=== PATIENT | female | born 1995 | race Caucasian/White ===

== ENCOUNTER 2018-12-18 10:42 | Outpatient (REF) | payer OTHER, SELFPAY ==
[2018-12-18 13:22] LABS: Anion Gap 10.5 mmol/L (3-11); BUN 11 mg/dL (7-18); CO2 26.5 mmol/L (21.0-32.0); CREATININE 0.66 mg/dL (0.55-1.02); Calcium 8.8 mg/dL (8.5-10.1); Chloride 107 mmol/L (98-107); Glucose 89 mg/dL (70-100); Potassium 4.3 mmol/L (3.5-5.1); Sodium 144 mmol/L (136-145)
[2018-12-19 10:58] LABS: Syphilis Serology (RPR) Negative (Negative)
[2018-12-19 11:55] LABS: HIV-1/2 Ag & Ab Screen Negative (NEGAT); Hepatitis C Ab w Rflx HCV PCR Negative (NEGAT)
[2018-12-19 11:59] LABS: Hepatitis B Surface Ag Negative (NEGAT)
[2018-12-19 12:53] LABS: HBs Antibody, Quant 50.3 mIU/mL; Hepatitis B Surface Ab Positive
[2018-12-19 14:20] LABS: Chlamydia Result Negative; GC Result Negative; Specimen Description URINE
== END 2018-12-18 11:02 ==
LOC: NCHCN 10:42
PROVIDERS: PCP Pediatrics; Visit Provider Nurse Practitioner Family
DX: Z00.00 Encounter for general adult medical examination without abnormal findings (principal); Z11.3 Encounter for screening for infections with a predominantly sexual mode of transmission; Z11.59 Encounter for screening for other viral diseases; Z11.4 Encounter for screening for human immunodeficiency virus [HIV]; Z13.228 Encounter for screening for other metabolic disorders
CPT/HCPCS: 80048; 85027; 86706; 86803; 87340; 87389; 87491; 87591; 86592

== ENCOUNTER 2019-01-04 17:10 | Outpatient (REF) | payer OTHER, SELFPAY ==
[2019-01-04 19:43] LABS: HGB 14.2 g/dL (12.0-15.5); Mean Corp. HGB Concentration 34.6 g/dL (32.0-36.0); Mean Corpuscular Hemoglobin 30.4 pg (27.0-33.0); Mean Corpuscular Volume 87.8 fL (80-95); Mean Platelet Volume 10.4 fL (8.0-11.0); Platelet Count 294 x1000/uL (130-400); RBC 4.67 m/cumm (4.00-5.20); RBC Distribution Width 12.1 % (11.7-14.6)
[2019-01-04 20:08] LABS: HCG Qual (Serum) Negative
== END 2019-01-04 17:30 ==
LOC: NCHCN 17:10
PROVIDERS: PCP Pediatrics; Visit Provider Nurse Practitioner Family
DX: N93.9 Abnormal uterine and vaginal bleeding, unspecified (principal)
CPT/HCPCS: 85027; 84703

== ENCOUNTER 2019-02-01 08:46 | Outpatient (REF) | payer OTHER, SELFPAY ==
--- NOTE | 2019-02-01 08:25 | PAPFT_PTH ---
PATIENT: Judit Chang LOC: [facility] U#:[id number] AGE/SX: 23/F ROOM: RE02/01/[address]: Josette Hayes NP : 1995 BED: DIS: 02/01/2019 SPEC #: [id number] RECD: 02/01/19 12:46 STATUS: TYRONE REAndrei #: [id number] JOSE: 02/01/19 08:[address]: Josette Hayes NP DEPT: [facility] Cytology RECD BY: Patt Garcia ENTERED: 02/01/19 12:47 SP TYPE: PAPFT OTHR DR: Arnold Esquivel Tissues: 1 - CX/ENDOCX FOR PAP SMEARS Procedures: PAP THIN PREP/UVM Screening Comments: [id number]
== END 2019-02-01 09:06 ==
LOC: LBN 08:46
PROVIDERS: PCP Nurse Practitioner Family; Visit Provider Nurse Practitioner Women's Health
DX: Z12.4 Encounter for screening for malignant neoplasm of cervix (principal)
CPT/HCPCS: 88142

== ENCOUNTER 2019-12-26 02:42 | Outpatient (CLI) | payer OTHER, SELFPAY ==
[2019-12-26 10:57] LABS: Abs Immature Grans 0.02 k/cumm (0.0-0.09); Absolute Basophil Count 0.01 k/cumm (0.0-0.2); Absolute Eosinophil Count 0.02 k/cumm (0.0-0.7); Absolute Lymphocyte Count 1.49 k/cumm (1.2-3.4); Absolute Monocyte Count 0.72 k/cumm (0.11-0.7); Absolute Neutrophil Count 5.99 k/cumm (1.2-6.7); Basophils % 0.1; Eosinophils % 0.2; HCT 37.3 % (36.0-46.0); Immature Grans % 0.2 %; Lymphocytes % 18.1; Mean Corp. HGB Concentration 34.9 g/dL (32.0-36.0); Mean Corpuscular Hemoglobin 30.1 pg (27.0-33.0); Mean Corpuscular Volume 86.3 fL (80-95); Monocytes % 8.7; Neutrophils % 72.7; Platelet Count 291 x1000/uL (130-400); RBC 4.32 m/cumm (4.00-5.20); RBC Distribution Width 12.6 % (11.7-14.6); White Blood Cell Count 8.25 k/cumm (4.4-10.8)
[2019-12-27 09:58] LABS: Hepatitis B Surface Ag Negative (Negative)
[2019-12-27 10:42] LABS: Hepatitis C Ab w Rflx HCV PCR Negative (Negative)
[2019-12-27 10:45] LABS: Varicella IgG Antibody Positive (See Note)
[2019-12-27 10:49] LABS: Rubella IgG Ab (UVM) Positive (See Note)
[2019-12-27 10:59] LABS: HIV-1/2 Ag & Ab Screen Negative (Negative)
[2019-12-27 15:27] LABS: Syphilis Total Ab w/Reflex Nonreactive (Nonreactive)
== END 2019-12-26 03:02 ==
PROVIDERS: PCP Nurse Practitioner Family; Visit Provider Advanced Practice Midwife
DX: Z34.91 Encounter for supervision of normal pregnancy, unspecified, first trimester (principal); Z11.59 Encounter for screening for other viral diseases; Z11.4 Encounter for screening for human immunodeficiency virus [HIV]; Z01.84 Encounter for antibody response examination
CPT/HCPCS: 36415; 86787; 86803; 86850; 86900; 86901; 87340; 87389; 85025; 86762; 86780

== ENCOUNTER 2019-12-26 12:08 | Outpatient (REF) | payer OTHER, SELFPAY ==
[2019-12-26 14:12] LABS: *AMPHETAMINES SCREEN URINE Negative (Negative); *BARBITURATES SCREEN URINE Negative (Negative); *BENZODIAZEPINES SCREEN URINE Negative (Negative); Cannabinoids THC Negative (Negative); Cocaine Screen,Urine Negative (Negative); METHADONE URINE SCREEN Negative (Negative); OPIATES URINE SCREEN Negative (Negative)
[2019-12-26 14:16] LABS: Tricyclic Antidepressants Negative (Negative)
[2019-12-27 13:50] LABS: Chlamydia Result Negative (Negative); GC Result Negative (Negative)
[2020-01-01 12:02] LABS: Buprenorphine Negative; Norbuprenorphine Negative
== END 2019-12-26 12:28 ==
LOC: LBN 12:08
PROVIDERS: PCP Nurse Practitioner Family; Visit Provider Advanced Practice Midwife
DX: Z34.91 Encounter for supervision of normal pregnancy, unspecified, first trimester (principal); Z11.3 Encounter for screening for infections with a predominantly sexual mode of transmission
CPT/HCPCS: 80307; 87491; 87591; 87086

== ENCOUNTER 2020-01-07 02:22 | Outpatient (CLI) | payer OTHER, SELFPAY ==
[2020-01-07 08:43] LABS: Kit/Specimen SENT
== END 2020-01-07 02:42 ==
PROVIDERS: PCP Nurse Practitioner Family; Visit Provider Advanced Practice Midwife
DX: Z34.01 Encounter for supervision of normal first pregnancy, first trimester (principal)

== ENCOUNTER 2020-02-20 04:33 | Outpatient (CLI) | payer OTHER, SELFPAY ==
--- NOTE | 2020-02-20 08:00 | DI.US_ITS ---
EXAM: US OB 2-3 TRIMESTER CLINICAL HISTORY: , survey, Z34.90. TECHNIQUE: Transabdominal obstetrical ultrasound performed. COMPARISON: No exams were available for comparison FINDINGS: Transabdominal obstetrical ultrasound performed. FINDINGS: Number of fetuses: One. position: Various positions during the examination. heart rate: 158 bpm. Placental location: Anterior. No evidence of previa. BIOMETRIC DATA: Composite Age: 19 weeks 2 days EDC by US: 07/14/2020 Amniotic fluid index: Amount of fluid is within normal limits. ANATOMICAL SURVEY: Unremarkable. IMPRESSION: 1. Single live intrauterine gestation as above. 2. Unremarkable anatomic survey. DATA REPOSITORY:
== END 2020-02-20 04:53 ==
PROVIDERS: PCP Nurse Practitioner Family; Visit Provider Advanced Practice Midwife
DX: Z34.92 Encounter for supervision of normal pregnancy, unspecified, second trimester (principal)
CPT/HCPCS: 76805

== ENCOUNTER 2020-04-16 04:08 | Outpatient (CLI) | payer OTHER, SELFPAY ==
[2020-04-16 10:16] LABS: HCT 33.6 % (36.0-46.0); HGB 11.4 g/dL (11.2-15.7); MCHC 33.9 % (32.0-36.0); MCV 91.3 fL (80-95); MPV 8.7 fL (8.0-11.0); Platelet Count 255 10^3/uL (130-400); RBC 3.68 10^6/uL (3.93-5.22); RDW 12.4 % (11.7-14.6); RDW-SD 41.1 fL; WBC 10.33 10^3/uL (4.4-10.8)
[2020-04-16 10:22] LABS: Glucose,1 Hr (Glucola) 89 mg/dL (80-140)
== END 2020-04-16 04:28 ==
PROVIDERS: PCP Nurse Practitioner Family; Visit Provider Advanced Practice Midwife
DX: Z34.92 Encounter for supervision of normal pregnancy, unspecified, second trimester (principal); Z3A.27 27 weeks gestation of pregnancy
CPT/HCPCS: 36415; 82950; 85027

== ENCOUNTER 2020-04-18 09:32 | Outpatient (CLI) | payer OTHER, SELFPAY ==
[2020-04-18 10:02] VITALS: BP 115/72; PULSE 97; TEMP 37.1
[2020-04-18 10:06] VITALS: BP 115/72; PULSE 97
[2020-04-18 11:12] VITALS: BP 115/72; PULSE 97; TEMP 37.1
--- NOTE | 2020-04-18 15:09 | PDOC.NST_ITS ---
Date of service: 04/18/20 Time of Service: 10:00 NST Evaluation Reason for NST Reasons for Nonstress Test: OTHER, SEE COMMENT Reason for NST Other: Patient fell at home Gestational Age Gestational Age in Weeks and Days: 27 Weeks and 3Days Test and Monitor Explained Test/Monitor Explained: Test Explained, Monitor Explained and Patient Verbalized Understanding Vital Signs Blood Pressure: 115/72 Pulse: 97 Temperature: 98.8 F Urine Results Urine Protein: Negative Urine Ketones: Negative Urine Glucose: Negative Urine Blood: Negative NST Information Date on Monitor: 04/18/20 Time on Monitor: 10:03 Date off Monitor: 04/18/20 Time off Monitor: 11:55 Total Time on Monitor: 112 NST Interventions: PO Hydration NST Evaluation Patient States Movement: Present FHR Baseline: 150 Variability: Moderate 6-25 bpm Accelerations: 10x10 Decelerations: None NST Results: Reactive NST Evaluation Baby B Patient States Movement: Present FHR Baseline: 145 Variability: Moderate 6-25 bpm Accelerations: 15x15 Decelerations: None NST Results: Reactive Note NST Note Note: Pt presents for nst s/p falling down three steps on her buttocks. No tr auma to abd. As per consult w/ w/o need for residential monitoring only nst needed. Pt denies any lof. Reports good fm. Enc. to keep scheduled appt. Report decreased fm. NST Reviewed and Verified by: Hernan Summers
[2020-04-18 15:12] VITALS: BP 115/72; PULSE 97; TEMP 37.1
== END 2020-04-18 12:10 | disposition home or self-care (01) ==
LOC: BCD 09:33 → OBS 09:55
PROVIDERS: PCP Nurse Practitioner Family; Visit Provider Advanced Practice Midwife
DX: Z04.3 Encounter for examination and observation following other accident (principal); O9A.212 Injury, poisoning and certain other consequences of external causes complicating pregnancy, second trimester; Z3A.27 27 weeks gestation of pregnancy; W10.9XXA Fall (on) (from) unspecified stairs and steps, initial encounter
CPT/HCPCS: 59025

== ENCOUNTER 2020-06-19 15:53 | Outpatient (REF) | payer MEDICAID, SELFPAY ==
[2020-06-19 15:44] LABS: *AMPHETAMINES SCREEN URINE Negative (Negative); *BARBITURATES SCREEN URINE Negative (Negative); *BENZODIAZEPINES SCREEN URINE Negative (Negative); Cannabinoids THC Negative (Negative); Cocaine Screen,Urine Negative (Negative); METHADONE URINE SCREEN Negative (Negative); OPIATES URINE SCREEN Negative (Negative)
[2020-06-19 15:45] LABS: Tricyclic Antidepressants Negative (Negative)
[2020-06-29 12:25] LABS: Buprenorphine Negative
== END 2020-06-19 16:13 ==
LOC: LBN 15:53
PROVIDERS: PCP Nurse Practitioner Family; Visit Provider Advanced Practice Midwife
DX: Z34.93 Encounter for supervision of normal pregnancy, unspecified, third trimester (principal); Z36.85 Encounter for antenatal screening for Streptococcus B; Z3A.36 36 weeks gestation of pregnancy
CPT/HCPCS: 80307; 87081

== ENCOUNTER 2020-06-25 18:28 | Outpatient (CLI) | payer MEDICAID, SELFPAY ==
[2020-06-25 19:08] VITALS: BP 136/76; PULSE 114; TEMP 36.6
--- NOTE | 2020-06-25 20:01 | W.OBNST ---
Date of service: 06/25/20 Time of Service: 20:01 NST Evaluation Reason for NST Reasons for Nonstress Test: OTHER, SEE COMMENT Reason for NST Other: ?PPROM Gestational Age Gestational Age in Weeks and Days: 37 Weeks and 1Days Test and Monitor Explained Test/Monitor Explained: Test Explained, Monitor Explained and Patient Verbalized Understanding Vital Signs Blood Pressure: 136/76 Pulse: 114 Temperature: 97.9 F NST Information Date on Monitor: 06/25/20 Time on Monitor: 19:09 Date off Monitor: 06/25/20 Time off Monitor: 19:34 Total Time on Monitor: 25 NST Interventions: None Contraction Frequency: None NST Evaluation Patient States Movement: Present FHR Baseline: 140 Variability: Moderate 6-25 bpm Accelerations: 15x15 Decelerations: None NST Results: Reactive Note NST Note Note: SSE performed, neg ferns, neg nitrizine, neg pooling NST Reviewed and Verified by: Radha Camacho
[2020-06-25 20:02] VITALS: BP 136/76; PULSE 114; TEMP 36.6
== END 2020-06-25 19:45 ==
LOC: BCD 18:31 → OBS 18:36
PROVIDERS: PCP Nurse Practitioner Family; Visit Provider Advanced Practice Midwife
DX: O47.1 False labor at or after 37 completed weeks of gestation (principal); Z3A.37 37 weeks gestation of pregnancy
CPT/HCPCS: 59025

== ENCOUNTER 2020-06-28 08:01 | Outpatient (REF) | payer MEDICAID, SELFPAY ==
[2020-06-28 08:06] VITALS: BP 127/84; PULSE 110; TEMP 36.8
[2020-06-28 08:08] VITALS: BP 127/84; PULSE 110
--- NOTE | 2020-06-28 14:15 | W.OBNST ---
Date of service: 06/28/20 Time of Service: 11:00 NST Evaluation Reason for NST Reasons for Nonstress Test: DECREASED MOVEMENT Gestational Age Gestational Age in Weeks and Days: 37 Weeks and 4Days Test and Monitor Explained Test/Monitor Explained: Test Explained, Monitor Explained and Patient Verbalized Understanding Vital Signs Blood Pressure: 127/84 Pulse: 110 Temperature: 98.2 F NST Information Date on Monitor: 06/28/20 Time on Monitor: 08:00 Date off Monitor: 06/28/20 Time off Monitor: 08:57 Total Time on Monitor: 57 NST Interventions: PO Hydration NST Evaluation Patient States Movement: Present FHR Baseline: 140 Variability: Moderate 6-25 bpm Accelerations: 15x15 Decelerations: None NST Results: Reactive Note NST Note Note: Judit awoke this morning and was not feeling the baby moving. She came in for NST which was recative. She reports contractions last nigh which have stopped this morning. NST Reviewed and Verified by: Keely Patel
[2020-06-28 14:17] VITALS: BP 127/84; PULSE 110; TEMP 36.8
== END 2020-06-28 09:05 | disposition home or self-care (01) ==
LOC: BCD 08:01
PROVIDERS: PCP Nurse Practitioner Family; Visit Provider Advanced Practice Midwife
DX: O36.8130 Decreased fetal movements, third trimester, not applicable or unspecified (principal); Z3A.37 37 weeks gestation of pregnancy
CPT/HCPCS: 59025

== ENCOUNTER 2020-07-02 16:45 | Outpatient (CLI) | payer MEDICAID, SELFPAY ==
[2020-07-02 17:27] VITALS: BP 125/72; PULSE 100; TEMP 36.9
[2020-07-02 17:31] VITALS: BP 125/72; PULSE 100
[2020-07-02 18:44] LABS: ROM Plus Negative
--- NOTE | 2020-07-02 20:11 | PDOC.NST_ITS ---
Date of service: 07/02/20 Time of Service: 20:12 NST Evaluation Reason for NST Reasons for Nonstress Test: OTHER, SEE COMMENT Reason for NST Other: Rule out labor Gestational Age Gestational Age in Weeks and Days: 38 Weeks and 1Days Test and Monitor Explained Test/Monitor Explained: Test Explained, Monitor Explained and Patient Verbalized Understanding Vital Signs Blood Pressure: 125/72 Pulse: 100 Temperature: 98.4 F Urine Results Urine Protein: Negative Urine Ketones: Negative Urine Glucose: Negative Urine Blood: Negative NST Information Date on Monitor: 07/02/20 Time on Monitor: 17:31 Date off Monitor: 07/02/20 Time off Monitor: 18:50 Total Time on Monitor: 79 NST Interventions: PO Hydration NST Evaluation Patient States Movement: Present FHR Baseline: 130 Variability: Moderate 6-25 bpm Accelerations: 15x15 Decelerations: None NST Results: Reactive Note NST Note Note: Judit reports 'trickling of fluid at home. Sterile speculum exam performed. Neg pooling, neg fern, neg nitrazine. neg rom-plus. SVE - cervix Ft dilated 20% effaced and -1 station. Signs of labor reviewed. Follow up at [facility] NST Reviewed and Verified by: Keely Patel
[2020-07-02 20:13] VITALS: BP 125/72; PULSE 100; TEMP 36.9
== END 2020-07-02 18:55 | disposition home or self-care (01) ==
LOC: BCD 16:47 → OBS 17:22
PROVIDERS: PCP Nurse Practitioner Family; Visit Provider Advanced Practice Midwife
DX: O47.1 False labor at or after 37 completed weeks of gestation (principal); Z3A.38 38 weeks gestation of pregnancy
CPT/HCPCS: 59025; 84112; 87480; 87510; 87660

== ENCOUNTER 2020-07-17 21:02 | Inpatient (IN) | payer MEDICAID, SELFPAY ==
[2020-07-17 20:53] VITALS: BP 135/86; PULSE 110; RESP 16; TEMP 36.8; O2SAT 99
[2020-07-17 21:14] VITALS: BP 135/86; PULSE 110; RESP 16; TEMP 36.8; O2SAT 99
[2020-07-17 21:56] VITALS: BP 138/89; PULSE 94
[2020-07-17 23:28] VITALS: BP 141/82; PULSE 97; RESP 16
[2020-07-18] VITALS (9 sets, daily range): BP systolic 111–141; BP diastolic 59–78; PULSE 80–105; RESP 16–20; TEMP 36.8–37
--- NOTE | 2020-07-18 00:10 | W.PM.OBHPL1 ---
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 NORMA Calculator Estimated Delivery Date Method Current WG Current Estimate 07/15/20 Ultrasound #1 40w 3d Other Estimates 06/25/20 LMP (Certain) 43w 2d History of Present Expected Delivery Route/Plan - CNM FOB - Emre (Bridger) Allyssa- his first baby. BG GBS negative Interested in using tub for labor, thinking she'd like regional anesthesia when it gets intense Specific Issues/Plan 1. Learning Disability: on-line format is difficult. Responds better to live instruction. 2. GERD of migraines- not recently 3. History of depression 4. Genetic screening options reviewed - Quad screen desired - AFP declined, and patients opts for [place] test 4a. Pt changed her mind and requested [place] to be drawn. Order placed. 4b. 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 Nausea and vomiting- zofran PRN - stopped in 2nd trimester. Assessment: History Reviewed & Current Review of Systems All systems reviewed & are unremarkable except as noted in HPI and below Constitutional Constitutional: Reports system reviewed and no additional complaints, except as documented Cardiovascular Cardiovascular: Reports system reviewed and no additional complaints, except as documented Respiratory Respiratory: Reports system reviewed and no additional complaints, except as documented Gastrointestinal Gastrointestinal: Reports system reviewed and no additional complaints, except as documented Genitourinary Genitourinary: Reports system reviewed and no additional complaints, except as documented Comments: pieces of mucous plug with brown blood all day Musculoskeletal Musculoskeletal: Reports system reviewed and no additional complaints, except as documented and Reports back pain Integumentary/Breasts Skin/Breast: Reports system reviewed and no additional complaints, except as documented Neurologic Neurologic: Reports system reviewed and no additional complaints, except as documented Psychiatric Psychiatric: Reports system reviewed and no additional complaints, except as documented Allergic/Immunologic Allergic/Immunologic: Reports system reviewed and no additional complaints, except as documented PFSH Medical History (Updated 07/18/20 @ 00:22 by Radha Camacho) BMI 29.0-29.9,adult Congenital hearing disorder Depression Hip pain right hip Migraine takes alleve Obstructive sleep apnea (adult) (pediatric) (11/29/13) does not use cpap anymore Sleep apnea Family History (Updated 12/26/19 @ 09:47 by Keely Patel CNM) Mother Mental disorder bipolar- biological Mom - limited information Brother Mental disorder bipolar- biological - limited information Sister Autism Social History (Updated 02/01/19 @ 08:47 by Josette Hayes NP) Smoking/Tobacco Use Status: Never Smoking risk assessment performed?: Yes Alcohol Intake: current Alcohol Intake frequency: 0-2 drinks per day Drug use: Never Sexually active: Yes Do you think of yourself as: straight/heterosexual Current gender identity: female Do you feel safe in your relationship?: Yes Female Reproductive History Menstrual control method: none History History 1 Para 0 Hx # Term Pregnancies 0 Multiple births 0 Hx # Pregnancies 0 Ectopic pregnancies 0 AB induced 0 Hx Number of Living Children 0 AB spontaneous 0 Meds Home Medications and Allergies Home Medications Medication Instructions Recorded Confirmed Type prenat.vits,sri,ilv-nwxl-blfws 1 tab PO DAILY 11/19/19 07/09/20 History omeprazole 40 mg capsule,delayed 40 mg PO DAILY #30 cap 07/15/20 07/15/20 Rx release Allergies Allergy/AdvReac Type Severity Reaction Status Date / Time kiwi Allergy Severe Unverified 07/15/20 14:51 No Known Drug Allergies Allergy Unverified 07/15/20 14:51 orange AdvReac Mild Unverified 07/15/20 14:51 Exam Physical Exam Vital signs: Temp Pulse Resp BP Pulse Ox 98.2 F 97 H 16 141/82 H 99 07/17/20 21:14 07/17/20 23:28 07/17/20 23:28 07/17/20 23:28 07/17/20 21:14 Vital Signs Reviewed: Yes Constitutional Constitutional: mild distress Detailed Labor and Delivery Exam Dilation: 3.5 Effacement (%): 80 station: -2 Position: ROP Cervix position: posterior Consistency: medium Amniotic Membrane Status: Intact Monitor Mode: External Contraction Frequency(min): irregular but frequent Contraction Duration(sec): 40-60 seconds Contraction Intensity: Mild Fetus A Heart Rate Baseline: 135 Monitor Accelerations: 15 X 15 Monitor Decelerations: None Variability: Moderate (6-25 BPM) Presentation: Cephalic Categories: Category I Est. Weight: 7 lb 7.931 oz Est. Weight: 3400 gms HEENT Exam HEENT Exam: Normal Neck Exam Neck Exam: Normal Chest/Brest/Axilla Exam Chest Exam: Normal Breast Exam Breast Exam: Normal Respiratory Exam Respiratory Exam: Normal Cardiovascular Exam Cardiovascular Exam: Normal Abdominal Exam Abdominal Exam: Normal (Gravid, S=D) Rectal Exam Rectal Exam: Not Done Exam Exam: Normal Extremities Exam Extremities Exam: Normal Back/Spine/Pelvis Exam Back Exam: Normal Pelvis Adequate: Yes Skin Exam Skin Exam: Normal Neurological Exam Neurological Exam: Normal Psychiatric Exam Psychiatric Exam: Normal Results Results Group Beta Strep: Negative Blood Type: A+ Rubella Status: Immune Varicella Immunity: Immune Risk Assessment Risk for Shoulder Dystocia Historical/Initial OB: NEGATIVE FOR: Pelvic Abnormality, Pre- BMI>30, Previous Shoulder Dystocia or Previous Macrosomia 40 Weeks: NEGATIVE FOR: EFW> 4500 gms, Maternal Weight Gain >40lb or Post Dates Increased Risk?: No Counselin06/19/20 @ 36 weeks low risk al Delivery Plan @ 36wks: 06/19/20 al Risk for Pre-Eclampsia Daily Dose ASA Indicated: No Yes, if one or more: NEGATIVE FOR: Hx Pre-E/Gest HTN, Chronic HTN, Multiple Gestation, Pre-gestational DM, Renal Disease, Systemic Lupus or APA Syndrome Yes, if 2 or more: POSITIVE FOR: Nulliparity; NEGATIVE FOR: Age>= 35 yrs, >10yr btwn pregnancies, BMI>30, ethinicty, Mother/Sister w/ Pre-E or Previous IUGR Risk for Post- Hemorrhage Initial: NEGATIVE FOR: Multiple Gestation, Previous PPH, Known Clotting Deficiency, Grand Multiparity or Anticoagulation At Risk?: No Counseled re: Active Management: No Risks Reviewed Risks Reviewed Upon Admission: Yes
[2020-07-18] MEDS: MORPHine 10 MG/ML VIAL SC (00:34)
--- NOTE | 2020-07-18 04:03 | PGE_ITS ---
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
[2020-07-18 04:19] LABS: Abs Immature Grans 0.11 10^3/uL (0.0-0.06); Absolute Basophil Count 0.04 10^3/uL (0.0-0.2); Absolute Monocyte Count 0.94 10^3/uL (0.1-0.8); Basophils % 0.2; HCT 33.1 % (36.0-46.0); HGB 10.8 g/dL (11.2-15.7); Immature Grans % 0.6; Lymphocytes % 11.2; MCHC 32.6 % (32.0-36.0); MCV 82.8 fL (80-95); MPV 10.2 fL (8.0-11.0); Monocytes % 5.3; Neutrophils % 82.7; Nucleated RBC 0 %; Platelet Count 254 10^3/uL (130-400); RDW 13.1 % (11.7-14.6); RDW-SD 39.6 fL; WBC 17.71 10^3/uL (4.4-10.8)
[2020-07-18 04:59] LABS: Absolute Lymphocyte Count 1.98 10^3/uL (1.2-3.4); Absolute Neutrophil Count 14.65 10^3/uL (1.2-6.7)
--- NOTE | 2020-07-18 05:39 | W.PM.OBNL1 ---
Date of service: 07/18/20 Time of Service: 05:39 Pelvic Exam Dilation: 10 station: +3 Position: ADELA Vaginal Exam Presentation: Vertex Contractions Monitor Mode: Palpation Intensity: Moderate/Strong Fetus A Monitor: Doppler Heart Rate Baseline: 145 Presentation: Vertex FHR Rhythm: Regular Accelerations: Present Decelerations: Early Recurrence: Episodic Amniotic Membrane Status: Ruptured Assessment Note: SROM 0418 clear Assessment and Plan Assessment and plan (1) 40 weeks gestation of : Status: Acute Assessment and plan: A: 2nd stage labor, cat 1 tracing overall P: 2nd stage huddle held pt pushing well rotation and descent to +3 anticipate Objective vital signs stable, IV infusing pt progressed from 6 to full dilation and involuntary pushing in an hour 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
[2020-07-18] MEDS: Oxytocin/Normal Saline 30 UNITS/500 ML BAG 95 UNITS IV (06:14)
--- NOTE | 2020-07-18 06:48 | OBVDS_ITS ---
Date of service: 07/18/20 Time of Service: 06:48 OB Labor/ Delivery Information Baby A Delivery Delivery Method: Spontaneaous Presentation: Cephalic Cephalic Position: Vertex Vertex Position: Left Occipital Anterior Breech Position: N/A Cord Description-Baby A: 3 Vessels and Nuchal Cord (x3, loose) Cord Description Comment: long cord, measured 44 inches Amniotic Fluid: Clear Estimated Blood Loss: 250 Delivery Outcome: Liveborn Transferred: Remains with Mother Note: Pushing in various positions to facilitate maternal efforts, in semifowlers a vigorous female infant over intact perineum, first loop of nuchal cord reduced overhead, shoulders came easily and two more loops of loose nuchal cord unwrapped from around neck after delivery of entire infant, baby immediate ly to mother's arms and S2S, pitocin infusion initiated, cord ceased pulsations, clamped and cut at 5 minutes by mother, Dora placenta intact with 3VC, measured by RN @ 44 inches in length. Apgars 9/9. Perineum and vagina inspected, found to be intact, superficial left labial lac noted and edges tacked together with 1 stitch of 4.0 Vicryl. No clots in vagina, min rubra, straight cath for 100 ml clear yellow urine, excellent family bonding. Providers Nurse Building Code Inspector: Radha Camacho Nurse: Alessandra Bush Nurse: Trisha Sanabria Labor/Delivery Information Number of Babies in Womb: 1 Steroids Given: None Reason Steroids Not Administered: N/A Group Beta Strep: Negative Rubella Status: Immune Blood Type: A+ Varicella Immunity: Immune Maternal Complications: None Shoulder Dystocia: No Stages of Labor Onset of Labor Date: 07/17/20 Onset of Labor Time: 18:30 Complete Dilatation Date: 07/18/20 Complete Dilatation Time: 04:35 Labor - Stage 1 Duration: 24 hours and 0 minutes Infant Delivery Date-Baby A: 07/18/20 Delivery Time-Baby A: 06:14 Labor Stage 2 Duration: 1 hours and 39 minutes Placenta Delivery Date-Baby A: 07/18/20 Placenta Delivery Time-Baby A: 06:32 Labor-Stage 3 Duration: 18 minutes Total Length of Labor-Baby A: 11 hours and 44 minutes Placenta Cultured: No Placenta Status: Delivered Baby A Infant Gender: Female Gestational Status: Term (39-41.6 wks) Gestational Age in Weeks/Days: 40 Weeks and 3 Days weight: 7 lb 4.933 oz Weight Comment: 3315 gms Score-1 Minute Interval(Baby A) Heart Rate-1 minute: 100 BPM or Greater Respiratory Effort- 1 minute: Spontaneous/Strong Cry Muscle Tone-1 minute: Active Movement Reflex Response-1 minute: Prompt Response Color-1 minute: Bluish Hands or Feet Total Score-1 minute: 9 Score-5 Minute Interval(Baby A) Heart Rate- 5 minute: 100 BPM or Greater Respiratory Effort-5 minute: Spontaneous/Strong Cry Muscle Tone-5 minute: Active Movement Reflex Response-5 minute: Prompt Response Color-5 minute: Bluish Hands or Feet Total Score- 5 minute: 9 Procedure Procedures: Cord Blood Collection Interventions Repair of Laceration Type: Other (left labial, superficial lac) , Laceration Extension: N/A . Sponge Count Correct: Yes , Sharp Count Correct: Yes . Laceration Repair Note: 1 stitch of 4.0 vicryl to left labia
[2020-07-18] MEDS: Ibuprofen 600 MG TAB PO ×2 (13:00→19:00)
[2020-07-18] MEDS: Acetaminophen 325 MG TAB 650 MG PO ×2 (13:00→19:00)
[2020-07-18 20:18] LABS: COVID-19 RT-PCR UVMMC Result Negative (Negative)
[2020-07-19 05:45] LABS: HCT 31.2 % (36.0-46.0); MCH 26.7 pg (27.0-33.0); MCHC 32.1 % (32.0-36.0); MCV 83.4 fL (80-95); Platelet Count 214 10^3/uL (130-400); RBC 3.74 10^6/uL (3.93-5.22); RDW 13.3 % (11.7-14.6); RDW-SD 40.2 fL; WBC 13.19 10^3/uL (4.4-10.8)
[2020-07-19] MEDS: Ibuprofen 600 MG TAB PO ×2 (08:28→15:13)
[2020-07-19] MEDS: Acetaminophen 325 MG TAB 650 MG PO ×2 (08:29→15:13)
[2020-07-19 08:57] VITALS: BP 117/82; PULSE 90; RESP 16; TEMP 36.4; O2SAT 97
--- NOTE | 2020-07-19 09:28 | OBPPV_ITS ---
Date of service: 07/19/20 Time of Service: 09:28 Assessment and Plan Assessment and plan (1) Term delivered: Status: Acute Assessment and plan: A: PPD#1, nml recovery with latch issues anemia, asymtomatic P: Plan for discharge today when infant is released Start iron supplement after first BM Discussed hand expression of milk and spoon feeding RN support and counseling for Plans POP's for BCM F/up @ 2 & 6 wks PP Written instructions reviewed and given to pt Subjective Subjective Patient comments: No complaints, Pain well controlled, Tolerating diet and Flatus present [place] baby status: Doing well, Nursing well, Rooming in and Strong Bonding Observed feeding status: Exclusively breast feeding and Pipette Feeding Exam Physical Exam Vital signs: Temp Pulse Resp BP Pulse Ox 98.3 F 80 18 111/76 99 07/18/20 23:51 07/18/20 23:51 07/18/20 23:51 07/18/20 23:51 07/17/20 21:14 Vital Signs Reviewed: Yes Constitutional Constitutional: no acute distress HEENT Exam HEENT Exam: Normal Neck Exam Neck Exam: Normal Breast Exam Bilateral: Breast Exam: Normal and Soft Nipple Exam: Normal and Uninjured Comments: colostrum easily expressed from both breasts Respiratory Exam Respiratory Exam: Normal Cardiovascular Exam Cardiovascular Exam: Normal Abdominal Exam Abdomen: Other (soft, nontender) Fundal Exam Fundus: Below Umbilicus and Firm Rectal Exam Rectal Exam: Normal Exam Perineum: Intact and Normal Extremities Exam Extremity Exam: Normal and Full ROM Back/Spine/Pelvis Exam Back Exam: Normal Skin Exam Skin Exam: Normal Neurological Exam Neurological Exam: Normal Psychiatric Exam Psychiatric Exam: Normal Results Hemoglobin/Hematocrit: Hgb 10.0 g/dL (11.2-15.7) L 07/19/20 05:35 Hct 31.2 % (36.0-46.0) L 07/19/20 05:35
--- NOTE | 2020-07-19 15:10 | DSE_ITS ---
Date of service: 07/19/20 Time of Service: 15:10 DS: Diagnosis Discharge Diagnosis (1) Term delivered: Status: Acute Discharge Plan Disposition Patient Disposition: HOME Condition: Good Discharge Details Reason For Visit: R/O LABOR AT TERM Admit Date/Time: 07/17/20 21:02 Admit Provider: Radha Camacho Attending Provider: Radha Camacho Primary Care Provider: Arnold Esquivel Hospital Course Hospital Course: , nml course Home Meds and New Rx's Prescriptions: No Action KPN Tablet 1 tab PO DAILY RF: 0 ferrous sulfate 325 mg (65 mg iron) tablet 325 mg PO DAILY Qty: 60 RF: 0 Discharge Instructions Additional Instructions: Please call the [facility] on Tuesday at [phone] to schedule your 2 and 6 week visits with your terrazzo tile setter. The two week appointment can be done by telehealth if you wish. Please call the terrazzo tile setter detention sergeant for any concerns or questions. Stand Alone Forms: BC Instructions, NB Instructions, BC Post Vaginal Deliver Activity:: Activity as Tolerated Equipment/Supplies:: No Equipment Needed Diet:: Normal Diet Discharge Orders Discharge Orders: Discharge Order (Routine); Ordered 07/19/20 Ordered By: Radha Camacho OB:DS Summary Summary Vaginal Delivery Method: Spontaneaous Episiotomy Description: None Laceration Description: Other (left labial, superficial lac) Laceration Extension: N/A Contraception Discussed Contraception Discussed: Yes Contraceptive Plan: Control Pill/Patch, [employer] Infant Gender-Baby A: Female weight: 7 lb 4.933 oz Status at Discharge Functional status at discharge: independent ambulation Overall status at discharge: patient is progressing back to baseline Mental Status: mental status grossly normal Speech and Movement: speech and movement normal and speech clear Mood: congruent mood Affect: normal affect Exam Physical Exam Vital signs: Temp Pulse Resp BP Pulse Ox 97.5 F L 90 16 117/82 97 07/19/20 08:57 07/19/20 08:57 07/19/20 08:57 07/19/20 08:57 07/19/20 08:57 Constitutional Constitutional: no acute distress HEENT Exam HEENT Exam: Normal Neck Exam Neck Exam: Normal Breast Exam Bilateral: Breast Exam: Normal and Soft Comments: colostrum easily expressed from both breasts Respiratory Exam Respiratory Exam: Normal Cardiovascular Exam Cardiovascular Exam: Normal Abdominal Exam Abdomen: Other (soft, nontender) Fundal Exam Fundus: Below Umbilicus and Firm Rectal Exam Rectal Exam: Normal Exam Perineum: Intact and Normal Extremities Exam Extremity Exam: Normal and Full ROM Back/Spine/Pelvis Exam Back Exam: Normal Skin Exam Skin Exam: Normal Neurological Exam Neurological Exam: Normal Psychiatric Exam Psychiatric Exam: Normal [facility] Medical History (Updated 07/19/20 @ 09:30 by Radha Camacho) BMI 29.0-29.9,adult Congenital hearing disorder Depression Hip pain right hip Migraine takes alleve Obstructive sleep apnea (adult) (pediatric) (11/29/13) does not use cpap anymore Sleep apnea Family History (Updated 12/26/19 @ 09:47 by Keely Patel CNM) Mother Mental disorder bipolar- biological Mom - limited information Brother Mental disorder bipolar- biological - limited information Sister Autism Social History (Updated 02/01/19 @ 08:47 by Josette Hayes NP) Smoking/Tobacco Use Status: Never Smoking risk assessment performed?: Yes Alcohol Intake: current Alcohol Intake frequency: 0-2 drinks per day Drug use: Never Sexually active: Yes Do you think of yourself as: straight/heterosexual Current gender identity: female Do you feel safe in your relationship?: Yes Female Reproductive History Menstrual control method: none History History 1 Para 0 Hx # Term Pregnancies 0 Multiple births 0 Hx # Pregnancies 0 Ectopic pregnancies 0 AB induced 0 Hx Number of Living Children 0 AB spontaneous 0 DS: Data Vitals/I&O Vitals and I&O: Vital Signs Temperature 97.5 F L 07/19/20 08:57 Pulse 90 07/19/20 08:57 Pulse Rhythm Regular 07/19/20 08:57 Respiratory Rate 16 07/19/20 08:57 Respiratory Depth Normal 07/17/20 21:14 Blood Pressure 117/82 07/19/20 08:57 Blood Pressure Mean 93 07/19/20 08:57 Pulse Oximetry 97 07/19/20 08:57 Oxygen Delivery Method Room Air 07/17/20 21:14 Oxygen Flow Rate 0 07/17/20 21:14 Pain Level 5 07/19/20 08:57 Comment 07/19/20 07:39 Intake & Output 07/18/20 07/19/20 07/19/20 23:59 11:59 23:59 Intake Total 1050 / 2050 600 / 600 Output Total 800 / 1450 300 / 300 Balance 250 / 600 300 / 300 Intake: IV 500 / 500 Oral 550 / 1550 600 / 600 Output: Urine 800 / 800 300 / 300 Other: Urine Color Pale Data Completed and Pending Labs on day of discharge: Labs from last 24 hours 07/19/20 07/18/20 05:35 00:25 WBC 13.19 H RBC 3.74 L Hgb 10.0 L Hct 31.2 L MCV 83.4 MCH 26.7 L MCHC 32.1 RDW 13.3 Plt Count 214 MPV 10.0 SARS-CoV-2 (PCR) Negative Nasopharyn COVID-19 PCR Not Applicable Ref Test Perform Site [facility] lab
== END 2020-07-19 15:20 | disposition home or self-care (01) | DRG 807 ==
PROVIDERS: Admitting Provider Advanced Practice Midwife; PCP Nurse Practitioner Family; Visit Provider Advanced Practice Midwife
DX: O99.344 Other mental disorders complicating childbirth (principal); Z37.0 Single live birth; Z3A.40 40 weeks gestation of pregnancy; O69.81X0 Labor and delivery complicated by cord around neck, without compression, not applicable or unspecified; O69.89X0 Labor and delivery complicated by other cord complications, not applicable or unspecified; O70.0 First degree perineal laceration during delivery; F32.9 Major depressive disorder, single episode, unspecified; O99.52 Diseases of the respiratory system complicating childbirth; G47.33 Obstructive sleep apnea (adult) (pediatric)
CPT/HCPCS: 36415; 85027; 86850; 86900; 86901; U0003; 85025; G0378; J2270

== ENCOUNTER 2022-03-29 14:07 | Outpatient (REF) | payer MEDICAID, SELFPAY ==
--- NOTE | 2022-03-29 13:00 | PAPFT_PTH ---
PATIENT: Judit Chang LOC: [facility] U#:[id number] AGE/SX: 26/F ROOM: RE03/29/[address]: Aidee Camacho CNM : 1995 BED: DIS: 03/29/2022 SPEC #: [id number] RECD: 03/29/22 17:41 STATUS: TYRONE REQ #: [id number] JOSE: 03/29/22 13:[address]: Aidee Camacho DEPT: [facility] Cytology RECD BY: Patt Garcia Tissues: 1 - CX/ENDOCX FOR PAP SMEARS Procedures: PAP THIN PREP/UVM Screening Comments: [id number]
== END 2022-03-29 14:08 | disposition home or self-care (01) ==
LOC: LBN 14:07
PROVIDERS: Visit Provider Advanced Practice Midwife
DX: Z12.4 Encounter for screening for malignant neoplasm of cervix (principal)
CPT/HCPCS: 88142

== ENCOUNTER 2023-05-25 17:53 | Outpatient (REF) | payer MEDICAID, SELFPAY ==
[2023-05-25 21:20] LABS: Abs Immature Grans 0.02 10^3/uL (0.0-0.06); Absolute Basophil Count 0.04 10^3/uL (0.0-0.2); Absolute Eosinophil Count 0.07 10^3/uL (0.0-0.7); Absolute Lymphocyte Count 1.71 10^3/uL (1.2-3.4); Absolute Monocyte Count 0.45 10^3/uL (0.1-0.8); Absolute Neutrophil Count 6.64 10^3/uL (1.2-6.7); Basophils % 0.4; Eosinophils % 0.8; HCT 41.2 % (36.0-46.0); Immature Grans % 0.2; Lymphocytes % 19.1; MCH 30.7 pg (27.0-33.0); MCV 90 fL (80-95); MPV 9.5 fL (8.0-11.0); Neutrophils % 74.5; Platelet Count 363 10^3/uL (130-400); RBC 4.56 10^6/uL (3.93-5.22); RDW 12.4 % (11.7-14.6); RDW-SD 41.1 fL; WBC 8.93 10^3/uL (4.4-10.8)
[2023-05-25 21:44] LABS: Anion Gap 14.2 mmol/L (3-11); BUN 4 mg/dL (7-18); CO2 21.8 mmol/L (21.0-32.0); CREATININE 0.8 mg/dL (0.55-1.02); Calcium 9.4 mg/dL (8.5-10.1); Chloride 103 mmol/L (98-107); FREE T4 0.94 ng/dL (0.76-1.46); Glucose 85 mg/dL (74-106); Sodium 139 mmol/L (136-145); TSH 1.27 uIU/mL (0.36-3.74)
== END 2023-05-25 17:54 | disposition home or self-care (01) ==
LOC: LBN 17:53
PROVIDERS: Visit Provider Physician Assistant Medical
DX: R53.83 Other fatigue (principal)
CPT/HCPCS: 80048; 84439; 84443; 85025

== ENCOUNTER → 2023-07-12 03:02 | Outpatient (CLI) | payer MEDICAID, SELFPAY ==
--- NOTE | 2023-07-12 | DI.MRI_ITS ---
Exam(s) MR BRAIN WO EXAM: MR BRAIN WO CLINICAL HISTORY: DIZZINESS,R42,PRESSURE BEHIND EYES,HEADACHES,BALANCE CONCERN TECHNIQUE: Multiplanar multisequence MRI of the brain was performed. COMPARISON: No exams were available for comparison FINDINGS: VENTRICLES AND EXTRA AXIAL SPACES: Normal in size and morphology for the patient's age. MIDLINE SHIFT: None. CEREBRAL PARENCHYMA: No focus of restricted diffusion to suggest acute infarct. No space-occupying [place] identified. There are few scattered foci of hyperintense signal in the white matter on the FLAIR and T2 weighted images. HEMORRHAGE: None. BRAINSTEM/CEREBELLUM: Normal. CALVARIUM: Normal. VISUALIZED PARANASAL SINUSES/MASTOIDS:Clear. MENOMINEE OF MICHELLE: Normal flow void. PITUITARY GLAND: Unremarkable. OTHER FINDINGS: None. IMPRESSION: Few scattered hyperintense foci in the white matter on FLAIR and T2 weighted images. Differential co nsiderations include migraines, chronic microvascular ischemic change, demyelinating process, vasculi tis or vascular malformation. Please correlate clinically. DATA REPOSITORY:
== END ==
PROVIDERS: Visit Provider Nurse Practitioner Family
DX: R42 Dizziness and giddiness (principal)
CPT/HCPCS: 70551

== ENCOUNTER 2023-10-11 03:22 | Emergency (ER) | payer MEDICAID, SELFPAY ==
[2023-10-11 03:25] VITALS: BP 144/97; PULSE 89; RESP 21; TEMP 37.1; O2SAT 100
--- NOTE | 2023-10-11 03:28 | ED.GENADUL_ITS ---
Discharge Plan Disposition Patient Disposition: Home Condition: Good Discharge Details Clinical Impression: Acute otitis media, left Primary Care Provider: Jennifer Aleman ED Provider: Israel Pedraza Home Meds and New Rx's Prescriptions: New amoxicillin-pot clavulanate 875-125 mg tablet 1 tab PO BID 7 Days Qty: 14 0RF No Action norethindrone ac-eth estradiol [ (21)] 1.5-30 mg-mcg tablet 1 tab PO DAILY Qty: 63 5RF Rx Instructions: patient needs appointment in office by April 2022 Discharge Instructions Instructions: Ear Infection (ED) Additional Instructions: At this time you have an ear infection in your left ear. Please take 800 mg of ibuprofen every 6 hours and 1000 mg of Tylenol every 6 hours as needed for pain. Please take the antibiotic as directed. This has been sent to your pharmacy on file. If you notice any worsening of your symptoms, or any new symptoms such as vomiting, diarrhea, fever, chills, shortness of breath, chest pain, numbness, weakness, or fainting , please return immediately to the emergency department for reevaluation. Please follow up with your primary care provider as soon as possible for reassessment and reevaluation. As always, it was a pleasure participating in your medical care today. Referrals: Jennifer Aleman [Primary Care Provider] - [facility] General Date/Time Provider Initiated Documentation: 10/11/23 03:23 . [facility] Narrative: Pleasant 27-year-old female with past medical history of migraines, congenital hearing disorder, depression, presents today for left-sided ear pain. 1 week ago she had right-sided ear pain which got better on its own, last night she developed left-sided ear pain, she has not taken any Tylenol or Motrin for it. She denies any fever or chills. She denies any cough or shortness of breath. No headache. No drainage. No other complaints at this time. Related Data Home Medications Medication Instructions Recorded Confirmed norethindrone acetate 1.5 1 tab PO DAILY #63 tabs 07/14/23 10/11/23 mg-ethinyl estradiol 30 mcg tablet () amoxicillin 875 mg-potassium 1 tab PO BID 7 days #14 tabs 10/11/23 clavulanate 125 mg tablet Previous Rx's Medication Instructions Recorded norethindrone acetate 1.5 1 tab PO DAILY #63 tabs 07/14/23 mg-ethinyl estradiol 30 mcg tablet (Junel) amoxicillin 875 mg-potassium 1 tab PO BID 7 days #14 tabs 10/11/23 clavulanate 125 mg tablet Allergies Allergy/AdvReac Type Severity Reaction Status Date / Time kiwi Allergy Severe Unverified 07/12/23 13:55 No Known Drug Allergies Allergy Unverified 07/12/23 13:55 orange AdvReac Mild Unverified 07/12/23 13:55 General Stated Complaint: EarProblem CARLOS: 3 Review of Systems All systems reviewed & are unremarkable except as noted in HPI and below Exam Narrative Exam Narrative: 1.Const: Well-nourished, Well-developed, appearing stated age 2.Eyes: PERRL, no conjunctival injection, and symmetrical lids. 3.ENT: Atraumatic external nose and ears. Moist MM. Neck: Symmetric, trachea midline, No thyromegaly. Left tympanic membrane is erythematous, crescent shaped amount of fluid/effusion is present. No tympanic membrane rupture. No otitis externa. Right tympanic membrane is spears and pearly. No nuchal rigidity. No mastoid tenderness. No fluctuance. 4.CVS: +S1/S2, No murmurs or gallops. Peripheral pulses 2+ and equal in all extremities. Brisk capillary refill in all extremities. 5.RESP: Unlabored respiratory effort. Clear to auscultation bilaterally. No wheezes rales or rhonchi 6.GI: Soft, Nontender/Nondistended, No hepatosplenomegaly. No guarding or rebound. 7.MSK: Normocephalic/Atraumatic, Extremities w/o deformity or ttp No cyanosis or clubbing, Normal movement of all extremities 8.Skin: Warm, Dry. No rashes or lesions. 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 Sensation grossly intact, no focal neurologic deficits. 10.Psych: (AAO) x3. Appropriate mood and affect Course Vital Signs Vital signs: Vital Signs Temperature 37.1 C 10/11/23 03:25 Pulse 89 10/11/23 03:25 Respiratory Rate 21 10/11/23 03:25 Blood Pressure 166/112 H 10/11/23 03:25 Pulse Oximetry 100 10/11/23 03:25 Temperature 37.1 C 10/11/23 03:25 Temperature Source Temporal Artery Scan 10/11/23 03:25 Pulse 89 10/11/23 03:25 Respiratory Rate 21 10/11/23 03:25 Blood Pressure 166/112 H 10/11/23 03:25 Blood Pressure Position Sitting 10/11/23 03:25 Pulse Oximetry 100 10/11/23 03:25 Oxygen Delivery Method Room Air 10/11/23 03:25 Oxygen Flow Rate 0 10/11/23 03:25 Pain Level 0 10/11/23 03:25 Medical Decision Making Pleasant 27-year-old female with past medical history of migraines, congenital hearing disorder, depression, presents today for left-sided ear pain. 1 week ago she had right-sided ear pain which got better on its own, last night she developed left-sided ear pain, she has not taken any Tylenol or Motrin for it. She denies any fever or chills. She denies any cough or shortness of breath. No headache. No drainage. No other complaints at this time. Exam demonstrates well-appearing female, notable left-sided otitis media. Right tympanic membrane is spears and pearly. Oropharynx is normal with no erythema edema or tonsillar abnormality. No nuchal rigidity or mastoid tenderness. Symptoms consistent with otitis media. Will give Augmentin, first dose here and a prescription for home. Discussed that this may affect control and diminish its effectiveness while on the medication. Discussed red flags which to return. Recommend continued NSAIDs at home. Will give 800 mg of ibuprofen here prior to discharge. I have extensively reviewed the treatment plan and discharge instructions with the patient. I have addressed all patient concerns at this time. The patient was made aware of what symptoms to monitor for that would warrant a return to the emergency department. Discussed the plan with the patient, they demonstrate verbal understanding and agreement with our assessment and plan at this time. The documentation in this chart was dictated using [employer] dictation software. Please excuse any dictation errors. Quality:SDOH Health Related Social Needs: No Data to Display PFSH All Active Problems Acute otitis media, left (Acute) Oral contraceptive prescribed (Acute) BMI 29.0-29.9,adult (Acute) Migraine (Chronic) takes alleve Learning difficulty (Acute 08/16/12) IEP in place for verbal skills Depressive disorder (Acute 02/22/13) Congenital hearing disorder (Acute 08/13/13) BILAT - HAS HEARING AIDS Medical History Carpal tunnel syndrome during Hip pain right hip Depression Dysmenorrhea (01/22/15) Vertigo (08/13/13) PT HAS APPOINT WITH PEDS CARDIOLOGY IN OCTOBER 2013 - RECOMMENDATION IS NO SPORTS PARTICIPATION UNTIL CLEARED RE SAME PENDING THAT VISIT - SEE DR. FORMAN NOTE Sensorineural hearing loss, asymmetrical (11/29/13) Psoas tendinitis of right side (03/24/15) Obstructive sleep apnea (adult) (pediatric) (11/29/13) does not use cpap anymore Hypoglycemia (02/22/13) SUSPECTED EPISODES Gastroesophageal reflux disease (08/13/13) Congenital hearing disorder Sleep apnea Family History Mother Mental disorder bipolar- biological Mom - limited information Brother Mental disorder bipolar- biological - limited information Sister Autism Social History Smoking/Tobacco Use Status: Never Smoking risk assessment performed?: Yes Alcohol Intake: current Alcohol Intake frequency: 0-2 drinks per day Drug use: Occasionally Substance use type: marijuana Housing: apartment Sexually active: Yes Do you think of yourself as: straight/heterosexual Current gender identity: female Do you feel safe at home: Yes Do you feel safe in your relationship?: Yes Female Reproductive History Menstrual control method: none History History 1 Para 1 Hx # Term Pregnancies 1 Multiple births 0 Hx # Pregnancies 0 Ectopic pregnancies 0 AB induced 0 Hx Number of Living Children 1 AB spontaneous 0 Past Pregnancies Del. Date GA/Weeks # Preg Succ Route Wgt Sex Labor Lgth Anesth esia Location [facility] 07/18/20 40 No vaginal 3314.995 g Female 6 hours Colin King CNM Delivery Date: 07/18/20 Last Updated by: PARISH Stallworth.
[2023-10-11] MEDS: Amox. 875/Clav. 125, 2 TABS/BTL 1 TAB PO (03:32)
[2023-10-11] MEDS: Ibuprofen 800 MG TAB PO (03:33)
== END 2023-10-11 03:35 | disposition home or self-care (01) ==
LOC: ER 04:55
PROVIDERS: Emergency Provider Student in an Organized Health Care Education/Training Program; PCP Nurse Practitioner Family
DX: H66.92 Otitis media, unspecified, left ear (principal)
CPT/HCPCS: 99283

== ENCOUNTER 2024-07-09 06:56 | Emergency (ER) | payer SELFPAY ==
[2024-07-09 07:00] VITALS: BP 121/79; PULSE 80; RESP 20; TEMP 36.9; O2SAT 97
--- NOTE | 2024-07-09 07:26 | ED.GENADUL_ITS ---
Discharge Plan Disposition Patient Disposition: Home Condition: Stable Discharge Details Clinical Impression: Influenza A, Cough, N&V (nausea and vomiting) Primary Care Provider: Unknown,Unknown ED Provider: Griffin Hayes Home Meds and New Rx's Prescriptions: New ondansetron 4 mg tablet,disintegrating 4 mg PO Q8H PRN (Reason: nausea and vomiting) Qty: 30 0RF Continued norethindrone ac-eth estradiol [ (21)] 1.5-30 mg-mcg tablet 1 tab PO DAILY Qty: 63 5RF Rx Instructions: patient needs appointment in office by April 2022 Discharge Instructions Additional Instructions: You are positive for the flu You can take ibuprofen 400 mg every 4 hours and acetaminophen 1000 mg every 6 hours as needed If not improved within a week follow-up primary care provider If you feel more ill or have new symptoms such as severe difficulty breathing or persistent vomiting despite the medication return to the emergency department for reevaluation HPI General Mode of arrival: ambulatory . Date/Time Provider Initiated Documentation: 07/09/24 06:57 . Limitations to Documentation: no limitations . Information obtained by: patient . History of Present Illness 28 year old F presents to the emergency department with the chief complaint of n/v, migraine, described as moderate, Quality is described as aching, and is localized to the head. Patient reports no radiation. Patient started experiencing this week(s) (1) and it has been constant. No relieving factors improve symptom(s), No exacerbating factors reported . Patient notes cough. Patient did receive the following treatments prior to arrival, none Related Data Home Medications ?Medication ?Instructions ?Recorded ?Confirmed norethindrone acetate 1.5 1 tab PO DAILY #63 tabs 07/14/23 07/09/24 mg-ethinyl estradiol 30 mcg tablet () ondansetron 4 mg disintegrating 4 mg PO Q8H PRN nausea and 07/09/24 tablet vomiting #30 tabs Previous Rx's ?Medication ?Instructions ?Recorded norethindrone acetate 1.5 1 tab PO DAILY #63 tabs 07/14/23 mg-ethinyl estradiol 30 mcg tablet () ondansetron 4 mg disintegrating 4 mg PO Q8H PRN nausea and 07/09/24 tablet vomiting #30 tabs Allergies Allergy/AdvReac Type Severity Reaction Status Date / Time jovani Allergy Severe Anaphylaxis Unverified 07/09/24 07:03 orange AdvReac Mild Other (See Unverified 07/09/24 07:03 Comment) General Stated Complaint: Nausea/Vomit/Diar CARLOS: 3 Review of Systems All systems reviewed & are unremarkable except as noted in HPI and below Constitutional Constitutional: Denies chills, Denies fever(s) and Denies weakness Cardiovascular Cardiovascular: Denies chest pain and Denies dyspnea Respiratory Respiratory: Denies cough and Denies dyspnea Gastrointestinal Gastrointestinal: Denies abdominal pain, Reports nausea and Reports vomiting Neurologic Neurologic: Denies weakness and Reports other (headache) Exam Const General: no acute distress Orientation: alert HENMT Head: normal to inspection Ears: external ears normal General nose exam: external nose normal Mouth: moist mucous membranes Eyes General: appearance normal, both eyes and all related structures Neck Neck: normal visual inspection Resp Effort & Inspection: normal respiratory effort and able to speak in complete sentences Auscultation: clear to auscultation bilaterally Cardio Jugular venous pressure: no JVD Rate: regular rate Heart Sounds: no murmurs GI Palpation: soft and nontender Skin General skin exam: no rashes or lesions noted Neuro General: patient alert and patient oriented x3 Extrem General: normal to inspection Psych Mental Status: mental status grossly normal Course Vital Signs Vital signs: Vital Signs Temperature 36.9 C 07/09/24 07:00 Pulse 80 07/09/24 07:00 Respiratory Rate 20 07/09/24 07:00 Blood Pressure 121/79 07/09/24 07:00 Pulse Oximetry 97 07/09/24 07:00 Temperature 36.9 C 07/09/24 07:00 Temperature Source Oral 07/09/24 07:00 Pulse 80 07/09/24 07:00 Respiratory Rate 20 07/09/24 07:00 Blood Pressure 121/79 07/09/24 07:00 Blood Pressure Position Sitting 07/09/24 07:00 Pulse Oximetry 97 07/09/24 07:00 Oxygen Delivery Method Room Air 07/09/24 07:00 Oxygen Flow Rate 0 07/09/24 07:00 Pain Level 8 07/09/24 07:00 Medical Decision Making 28-year-old female with a history of migraines comes in with 1 week of intermittent cough and intermittent migraines. She says she had fever started a week but none since. Her daughter became sick yesterday with a fever and cough as well. She says this morning she has been vomiting and not been able to keep anything down. She says the migraines upwards of her life and is slowly worsening and did not have a thunderclap start per her description. She has no fevers now, never had any neck stiffness. She has no abdominal pain. She has clear lung sounds, no JVD, no leg swelling or abdominal tenderness. She has no focal neurological deficits, no meningismus. I suspect she does have a URI which led to a migraine SCUDs or vomiting. Will treat her symptoms with Zofran and Toradol, check a Fluvid and chest x-ray to evaluate for pneumonia and reassess. Patient positive for flu, chest x-ray negative. She feels better after Toradol and Zofran. Tolerating p.o. Given she had symptoms for over 48 hours do not feel Tamiflu indicated. She is stable for discharge will follow-up with her PCP, return precautions given Differential Diagnosis Differential Diagnosis: URI, migraine, pneumonia Quality:SDOH Health Related Social Needs: No Data to Display PFSH All Active Problems (Updated 07/09/24 @ 08:20 by Griffin Hayes MD) N&V (nausea and vomiting) (Acute) Cough (Acute) Influenza A (Acute) Oral contraceptive prescribed (Acute) BMI 29.0-29.9,adult (Acute) Migraine (Chronic) takes alleve Learning difficulty (Acute 08/16/12) IEP in place for verbal skills Depressive disorder (Acute 02/22/13) Congenital hearing disorder (Acute 08/13/13) BILAT - HAS HEARING AIDS Medical History Carpal tunnel syndrome during Hip pain right hip Depression Dysmenorrhea (01/22/15) Vertigo (08/13/13) PT HAS APPOINT WITH PEDS CARDIOLOGY IN OCTOBER 2013 - RECOMMENDATION IS NO SPORTS PARTICIPATION UNTIL CLEARED RE SAME PENDING THAT VISIT - SEE DR. FORMAN NOTE Sensorineural hearing loss, asymmetrical (11/29/13) Psoas tendinitis of right side (03/24/15) Obstructive sleep apnea (adult) (pediatric) (11/29/13) does not use cpap anymore Hypoglycemia (02/22/13) SUSPECTED EPISODES Gastroesophageal reflux disease (08/13/13) Congenital hearing disorder Sleep apnea Family History Mother Mental disorder bipolar- biological Mom - limited information Brother Mental disorder bipolar- biological - limited information Sister Autism Social History Smoking/Tobacco Use Status: Never Smoking risk assessment performed?: Yes Alcohol Intake: current Alcohol Intake frequency: 0-2 drinks per day Drug use: Occasionally Substance use type: marijuana Housing: apartment Sexually active: Yes Do you think of yourself as: straight/heterosexual Current gender identity: female Do you feel safe at home: Yes Do you feel safe in your relationship?: Yes Female Reproductive History Menstrual control method: none History History 1 Para 1 Hx # Term Pregnancies 1 Multiple births 0 Hx # Pregnancies 0 Ectopic pregnancies 0 AB induced 0 Hx Number of Living Children 1 AB spontaneous 0 Past Pregnancies Del. Date GA/Weeks # Preg Succ Route Wgt Sex Labor Lgth Anesth esia Location Prov Complic 07/18/20 40 No vaginal 3314.995 g Female 6 hours Colin King CNM Delivery Date: 07/18/20 Last Updated by: PARISH Stallworth.
[2024-07-09 07:52] LABS: COVID-19 PCR Negative (Negative); Influenza A PCR Positive (Negative); Influenza B PCR Negative (Negative); RSV PCR Negative (Negative)
[2024-07-09 07:54] LABS: Source Nasopharynx
--- NOTE | 2024-07-09 07:54 | DI.RAD_ITS ---
Exam(s) XR CHEST 2V PA LATERAL EXAM: XR CHEST 2V PA LATERAL CLINICAL HISTORY: cough. TECHNIQUE: 2D digital imaging was performed. COMPARISON: No exams were available for comparison FINDINGS: 2 views: Heart size is normal. The mediastinum is not widened. Lungs are clear. No infiltrates nor pleural effusions. IMPRESSION: No acute pulmonary findings. DATA REPOSITORY: RADIATION DOSE DELIVERED:
[2024-07-09] MEDS: Ondansetron 4 MG/2 ML VIAL IVP (08:11)
[2024-07-09] MEDS: Ketorolac 15 MG/ML VIAL IVP (08:11)
[2024-07-09 08:23] VITALS: BP 117/85; PULSE 105; RESP 16; TEMP 37.4; O2SAT 96
[2024-07-09 08:33] VITALS: BP 117/85; PULSE 105; RESP 16; TEMP 37.4; O2SAT 98
== END 2024-07-09 08:52 | disposition home or self-care (01) ==
LOC: ER 08:59
PROVIDERS: Emergency Provider Emergency Medicine
DX: J10.1 Influenza due to other identified influenza virus with other respiratory manifestations (principal); R05.9 Cough, unspecified; R11.2 Nausea with vomiting, unspecified
CPT/HCPCS: 87637; 96374; 96375; 99284; 71046; J1885; J2405

== ENCOUNTER 2024-07-11 12:44 | Emergency (ER) | payer SELFPAY ==
[2024-07-11 12:51] VITALS: BP 121/88; PULSE 86; RESP 18; TEMP 36.8; O2SAT 98
--- NOTE | 2024-07-11 13:45 | DI.RAD_ITS ---
Exam(s) XR CHEST 2V PA LATERAL EXAM: XR CHEST 2V PA LATERAL CLINICAL HISTORY: flu +. worsening cough, fever. TECHNIQUE: 2D digital imaging was performed. COMPARISON: CR XR CHEST 2V PA LATERAL from 07/09/2024 FINDINGS: 2 views: Heart size is normal. The mediastinum is not widened. Lungs are clear. No infiltrates nor pleural effusions. IMPRESSION: No acute pulmonary findings. DATA REPOSITORY: RADIATION DOSE DELIVERED:
[2024-07-11] MEDS: Metoclopramide 10 MG/2 ML VIAL IVP (14:19)
--- NOTE | 2024-07-11 14:19 | ED.GENADUL_ITS ---
Discharge Plan Disposition Patient Disposition: Home Condition: Stable Discharge Details Clinical Impression: Influenza A Primary Care Provider: Unknown,Unknown ED Provider: Addison Velasquez Home Meds and New Rx's Prescriptions: New promethazine 25 mg tablet 25 mg PO TID PRNQty: 30 0RF Continued norethindrone ac-eth estradiol [Junel (21)] 1.5-30 mg-mcg tablet 1 tab PO DAILY Qty: 63 5RF Rx Instructions: patient needs appointment in office by April 2022 Discontinued ondansetron 4 mg tablet,disintegrating 4 mg PO Q8H PRN (Reason: nausea and vomiting) Qty: 30 0RF ondansetron 4 mg tablet,disintegrating 4 mg PO Q8H PRN (Reason: nausea and vomiting) Qty: 30 0RF Discharge Instructions Instructions: Flu, Adult ED Additional Instructions: Please drink small amounts of fluid, frequently, in order to stay hydrated and avoid nausea. Allow for plenty of rest. Please contact your primary care physician to arrange follow-up. Return to the ER immediately for any worsening or new concerning symptoms. HPI General Mode of arrival: ambulatory . Date/Time Provider Initiated Documentation: 07/11/24 13:39 . Limitations to Documentation: no limitations . Information obtained by: patient . HPI Narrative: 28-year-old female presents with chief complaint of influenza with worsening symptoms. Patient notes she has been sick with respiratory illness for the past 8 days. Symptoms were initially mild and have worsened. She notes she was seen here 3 days ago and had flu testing that was positive. She notes intermittent nausea and vomiting and inability to keep down fluids. She is concerned she is dehydrated. Zofran not helping. She notes cough has persisted as has her fever. She feels generally unwell. Related Data Home Medications ?Medication ?Instructions ?Recorded ?Confirmed norethindrone acetate 1.5 1 tab PO DAILY #63 tabs 07/14/23 07/11/24 mg-ethinyl estradiol 30 mcg tablet () promethazine 25 mg tablet 25 mg PO TID PRN #30 tabs 07/11/24 Previous Rx's ?Medication ?Instructions ?Recorded norethindrone acetate 1.5 1 tab PO DAILY #63 tabs 07/14/23 mg-ethinyl estradiol 30 mcg tablet () promethazine 25 mg tablet 25 mg PO TID PRN #30 tabs 07/11/24 Allergies Allergy/AdvReac Type Severity Reaction Status Date / Time kiwi Allergy Severe Anaphylaxis Verified 07/11/24 12:58 orange AdvReac Mild Other (See Verified 07/11/24 12:58 Comment) General Stated Complaint: SOB CARLOS: 4 Review of Systems All systems reviewed & are unremarkable except as noted in HPI and below Constitutional Constitutional: Reports body ache(s) and Reports fever(s) Gastrointestinal Gastrointestinal: Reports as per HPI, Reports nausea and Reports vomiting Exam Const General: cooperative and no acute distress HENMT Mouth: mucous membranes dry Eyes Conjunctivae: normal conjunctivae Sclera: normal sclerae Resp Effort & Inspection: cough Auscultation: no rales, rhonchi and no wheezes Cardio Rate: regular rate and not tachycardic Rhythm: regular rhythm GI Palpation: soft, not firm, no guarding, no masses, not rigid and nontender Skin General skin exam: no rashes or lesions noted Neuro General: patient alert, patient awake, patient oriented x3 and tone normal Extrem General: no edema Psych Appearance: grossly normal Mental Status: mental status grossly normal Speech and Movement: speech and movement normal Course Vital Signs Vital signs: Vital Signs Temperature 36.8 C 07/11/24 12:51 Pulse 86 07/11/24 12:51 Respiratory Rate 18 07/11/24 12:51 Blood Pressure 121/88 07/11/24 12:51 Pulse Oximetry 98 07/11/24 12:51 Temperature 36.8 C 07/11/24 12:51 Temperature Source Tympanic 07/11/24 12:51 Pulse 86 07/11/24 12:51 Respiratory Rate 18 07/11/24 12:51 Blood Pressure 121/88 07/11/24 12:51 Blood Pressure Position Sitting 07/11/24 12:51 Pulse Oximetry 98 07/11/24 12:51 Oxygen Delivery Method Room Air 07/11/24 12:51 Oxygen Flow Rate 0 07/11/24 12:51 Pain Level 0 07/11/24 12:51 Medical Decision Making 1423 --28-year-old female here with 8 days of influenza-like illness, tested positive for influenza 3 days ago, returns with inability to tolerate p.o. intake, nausea and vomiting with worsening cough and persistent fever. Patient is hemodynamically stable, saturating well in no respiratory distress. She does appear dehydrated. Consider superimposed bacterial pneumonia versus persistent influenza. Plan to treat with IV fluid bolus, Reglan IV for nause, and will recheck chest x-ray to assess for infiltrate. 1600 --chest x-ray interpreted by radiology: Heart size is normal. The mediastinum is not widened. Lungs are clear. No infiltrates nor pleural effusions. Patient reassessed and feeling better with IV fluid. Plan for discharge with outpatient follow-up. Usual customary discharge instructions were reviewed. 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 FORMAN NOTE Sensorineural hearing loss, asymmetrical (11/29/13) Psoas tendinitis of right side (03/24/15) Obstructive sleep apnea (adult) (pediatric) (11/29/13) does not use cpap anymore Hypoglycemia (02/22/13) SUSPECTED EPISODES Gastroesophageal reflux disease (08/13/13) Congenital hearing disorder Sleep apnea Family History Mother Mental disorder bipolar- biological Mom - limited information Brother Mental disorder bipolar- biological - limited information Sister Autism Social History Smoking/Tobacco Use Status: Never Smoking risk assessment performed?: Yes Alcohol Intake: current Alcohol Intake frequency: 0-2 drinks per day Drug use: Occasionally Substance use type: marijuana Housing: apartment Sexually active: Yes Do you think of yourself as: straight/heterosexual Current gender identity: female Do you feel safe at home: Yes Do you feel safe in your relationship?: Yes Female Reproductive History Menstrual control method: none History History 1 Para 1 Hx # Term Pregnancies 1 Multiple births 0 Hx # Pregnancies 0 Ectopic pregnancies 0 AB induced 0 Hx Number of Living Children 1 AB spontaneous 0 Past Pregnancies Del. Date GA/Weeks # Preg Succ Route Wgt Sex Labor Lgth Anesth esia Location Prov Complic 07/18/20 40 No vaginal 3314.995 g Female 6 hours Colin King CNM Delivery Date: 07/18/20 Last Updated by: PARISH Stallworth.
[2024-07-11] MEDS: Lactated Ringers 1,000 ML 1000 ML IV (14:29)
[2024-07-11 14:39] VITALS: BP 118/61; PULSE 92; O2SAT 98
[2024-07-11 16:54] VITALS: BP 125/70; PULSE 82; RESP 16; TEMP 37.1; O2SAT 100
== END 2024-07-11 16:54 | disposition home or self-care (01) ==
PROVIDERS: Emergency Provider Student in an Organized Health Care Education/Training Program
DX: J10.1 Influenza due to other identified influenza virus with other respiratory manifestations (principal)
CPT/HCPCS: 96361; 96374; 99284; 71046; J2765